=== PATIENT | female | born 1940 | race Caucasian/White ===

== ENCOUNTER → 2017-01-20 | Outpatient (CLI) | payer OTHER, BC ==
[~2017-01-20] MED LIST: IOPAMIDOL (ISOVUE-300) 100 ML BTL ONE
== END ==
LOC: FIMAGING 13:24
PROVIDERS: ATTEND Urology
DX: K46.9 Unspecified abdominal hernia without obstruction or gangrene (principal); K57.30 Diverticulosis of large intestine without perforation or abscess without bleeding; J98.4 Other disorders of lung; M51.36 Other intervertebral disc degeneration, lumbar region; N39.0 Urinary tract infection, site not specified
CPT/HCPCS: 74178; Q9967

== ENCOUNTER 2017-02-04 12:34 | Inpatient (IN) | payer OTHER, BC ==
[2017-02-04] MEDS ORDERED: IPRATROPIUM/ALBUTEROL 3 ML DEYVIAL IH ONE (13:08)
[2017-02-04] MEDS ORDERED: ALBUTEROL 3 ML DEYVIAL IH ONE (13:08)
[2017-02-04] MEDS ORDERED: methylPREDNISolone SOD SUCC 125 MG/2 ML VIAL IVP ONE (13:08)
--- NOTE | 2017-02-04 13:09 | EDPHY ---
H & P Stated Complaint: PT WANTS TO BE ADMITTED FOR MONTHS OF CONTINUING PULMONARY ISSUES Time Seen by Provider: 02/04/17 12:53 HPI/ROS: CHIEF COMPLAINT: Shortness of breath, hypoxemia, needs admission HISTORY OF PRESENT ILLNESS: This is a 76-year-old female with a very complex past medical history was followed at [facility] for Respiratory diagnosis including bronchiectasis, asthma, and hypoxemia. Patient reports very frequent exacerbations and essentially tells me she has not felt well since November. She was seen at the [facility] yesterday and was noted to have worsening data based on the spirometry with a declining FEV1 as well as oxygen titration which demonstrated peripheral oximeter readings of 85% with activity. Patient's understanding is that she was referred to be admitted to [facility] for intensive therapy including IV steroids the potential of IV antibiotics. Patient denies any fevers, chest pain, nausea, vomiting, or diarrhea. Patient does report that her sputum has been becoming yellow and thick. For the patient's primary care physician yesterday, it had been recommended the patient be admitted to the hospital secondary to worsening lung functions, exertional hypoxemia, and failed outpatient attempts to treat her bronchiectasis exacerbation including 2 courses of oral prednisone antibiotic therapy in December. On my history the patient reports that she is feeling very tired, short of breath with any type of exertion. She is supposed to wear oxygen at 2 L continuously but reports that she has not been doing so. She currently does not on any prednisone and she currently does not use any nebulizer treatments. Patient denies a cardiac history. She has had no history of high blood pressure , diabetes, liver kidney issues. She does state that she has "chronic urinary tract infection which has not improved despite 2 courses of Keflex. REVIEW OF SYSTEMS: Aside from elements discussed in the HPI, a comprehensive 10-point review of systems was reviewed and is negative. PAST MEDICAL HISTORY: Bronchiectasis, asthma, GERD, hypothyroidism, hypoxemia, osteopenia, history of basal cell carcinoma, status post knee replacement. Status post hip replacement. SOCIAL HISTORY: Patient is a nonsmoker. Her primary care physician is Dr. Aide Lincoln in the [place] area. She has also closely follow the [facility]. VITAL SIGNS Reviewed by me. GENERAL: Well-developed, well-nourished, no obvious respiratory distress. Very hoarse voice.. HEENT: Atraumatic. Eyes: No icterus, no injection. Mouth: Dry mucous membranes, slight erythema posteriorly. No exudates. No tonsillar enlargement. Neck: supple with no adenopathy. LUNGS: Widespread wheezing and rhonchi. Prolonged expiratory phase. CARDIAC: Regular rate and rhythm, no rubs, murmurs or gallops. ABDOMEN: Soft, mildly obese, nontender, nondistended. BACK: No CVA tenderness. EXTREMITIES: No trauma. No edema. Range of motion is normal throughout. NEURO: Alert and oriented, grossly nonfocal. SKIN: Warm and dry, no rash. PSYCHIATRIC: Normal mentation, no agitation. - Personal History Current Tetanus/Diphtheria Vaccine: Yes - Medical/Surgical History Hx Asthma: Yes Hx Chronic Respiratory Disease: Yes Hx Diabetes: No Hx Cardiac Disease: No Hx Renal Disease: No Hx Cirrhosis: No Hx Alcoholism: No Hx HIV/AIDS: No Hx Splenectomy or Spleen Trauma: No Other PMH: ORTHO/HTN/HYST/GB/BRONCHIECTASIS - Social History Smoking Status: Never smoked Constitutional: Initial Vital Signs Temperature (C) 36.8 C 02/04/17 12:41 Heart Rate 67 02/04/17 12:41 Respiratory Rate 20 02/04/17 12:41 Blood Pressure 127/62 H 02/04/17 12:41 O2 Sat (%) 94 02/04/17 12:41 O2 Delivery Mode Room Air Allergies/Adverse Reactions: No Known Allergies Allergy (Verified 02/04/17 12:38) Home Medications: Medication Instructions Recorded Albuterol [Proventil Inhaler HFA 1 - 2 puffs IH Q4-6PRN PRN 02/04/17 (*)] Aspirin [Aspirin 325 mg (*)] 650 mg PO DAILY 02/04/17 Budesonide/Formoterol 160/4.5 2 puffs IH BID 02/04/17 [Symbicort 160-4.5 Mcg Inh (*)] Cholecalciferol Vit D3 [Vitamin D3 2,000 units PO DAILY 02/04/17 2000 units tab (OTC)] Clotrimazole/Betamet Diprop 1 clover TP BID 02/04/17 [Lotrisone Cream (*)] Levothyroxine [Synthroid 112 mcg 112 mcg PO DAILY06 02/04/17 (*)] Montelukast Sodium [Singulair 10 10 mg PO DAILY@1800 02/04/17 mg (*)] Omeprazole [Prilosec 20 mg] 20 mg PO BIDMEAL 02/04/17 Sodium Chloride For Inhalation 4 ml IH DAILY 02/04/17 [Hyper-Art] Umeclidinium [place] [Incruse 1 puffs IH DAILY 02/04/17 Ellipta] Medical Decision Making - Diagnostics EKG Interpretation: 12-LEAD EKG: Please see the full report in [facility]. My interpretation: With sinus rhythm, no ST or T-wave inversions Imaging Results: Imaging Impressions Chest X-Ray 02/04/17 13:07 Impression: 1. Perihilar bronchitis. 2. Bibasilar linear parenchymal fibrosis, similar to 02/21/2009. Xray: Chest x-ray was obtained. I viewed the images myself on the PACS system. My interpretation of the images is: Bibasilar scarring, no focal infiltrate. The radiology interpretation is: Pending. I discussed the results with the patient. ED Course/Re-evaluation: 76 year female with a complex past medical history presents for ongoing exacerbation of her bronchiectasis and worsening pulmonary function tests as well as hypoxemia. IV was placed and patient received Solu-Medrol 125 mg IV. She was given albuterol via nebulizer as well as a DuoNeb. Re-examination post nebulizer treatments: Minimal improvement in the patient's respiratory exam. Course discussed with hospitalist service. Patient to be admitted for intensive pulmonary support. Differential Diagnosis: Differential diagnosis for the patient's shortness of breath was considered including but not limited to pulmonary infectious processes, bronchiectasis exacerbation, pulmonary emboli, pulmonary edema, congestive heart failure, and cardiac causes. - Data Points Laboratory Results: Laboratory Results 02/04/17 13:06 02/04/17 13:06 02/04/17 02/04/17 13:06 13:06 WBC 9.29 10^3/uL 10^3/uL (3.80-9.50) RBC 4.84 10^6/uL 10^6/uL (4.18-5.33) Hgb 14.5 g/dL g/dL (12.6-16.3) Hct 43.0 % % (38.0-47.0) MCV 88.8 fL fL (81.5-99.8) MCH 30.0 pg pg (27.9-34.1) MCHC 33.7 g/dL g/dL (32.4-36.7) RDW 14.6 % % (11.5-15.2) Plt Count 304 10^3/uL 10^3/uL (150-400) MPV 10.2 fL fL (8.7-11.7) Neut % (Auto) 66.9 % % (39.3-74.2) Lymph % (Auto) 21.3 % % (15.0-45.0) [place] % (Auto) 10.0 % % (4.5-13.0) Eos % (Auto) 1.2 % % (0.6-7.6) Baso % (Auto) 0.4 % % (0.3-1.7) Nucleat RBC Rel Count 0.0 % % (0.0-0.2) Absolute Neuts (auto) 6.21 10^3/uL 10^3/uL (1.70-6.50) Absolute Lymphs (auto) 1.98 10^3/uL 10^3/uL (1.00-3.00) Absolute Monos (auto) 0.93 10^3/uL H 10^3/uL (0.30-0.80) Absolute Eos (auto) 0.11 10^3/uL 10^3/uL (0.03-0.40) Absolute Basos (auto) 0.04 10^3/uL 10^3/uL (0.02-0.10) Absolute Nucleated RBC 0.00 10^3/uL 10^3/uL (0-0.01) Immature Gran % 0.2 % % (0.0-1.1) Immature Gran # 0.02 10^3/uL 10^3/uL (0.00-0.10) Sodium 139 mEq/L mEq/L (134-144) Potassium 4.2 mEq/L mEq/L (3.5-5.2) Chloride 103 mEq/L mEq/L (97-110) Carbon Dioxide 25 mEq/l mEq/l (22-31) Anion Gap 11 mEq/L mEq/L (8-16) BUN 19 mg/dL mg/dL (7-23) Creatinine 0.9 mg/dL mg/dL (0.6-1.0) Estimated GFR > 60 Glucose 99 mg/dL mg/dL (70-100) Calcium 10.2 mg/dL mg/dL (8.5-10.4) Total Bilirubin 1.3 mg/dL mg/dL (0.1-1.4) Conjugated Bilirubin 0.0 mg/dL mg/dL (0.0-0.5) Unconjugated Bilirubin 1.3 mg/dL H mg/dL (0.0-1.1) AST 31 IU/L IU/L (14-46) ALT 23 IU/L IU/L (9-52) Alkaline Phosphatase 89 IU/L IU/L (38-126) Troponin I < 0.012 ng/mL ng/mL (0.000-0.034) Total Protein 7.1 g/dL g/dL (6.3-8.2) Albumin 4.4 g/dL g/dL (3.5-5.0) Lipase 25 IU/L IU/L (23-300) Medications Given: Discontinued Medications Albuterol (Proventil Neb) 3 ml IH EDNOW ONE Stop: 02/04/17 13:09 Last Admin: 02/04/17 13:23 Dose: 3 ml Albuterol/Ipratropium (Duoneb) 3 ml IH EDNOW ONE Stop: 02/04/17 13:09 Last Admin: 02/04/17 13:23 Dose: 3 ml Methylprednisolone Sodium Succinate (Solu-Medrol) 125 mg IVP EDNOW ONE Stop: 02/04/17 13:09 Last Admin: 02/04/17 13:21 Dose: 125 mg Departure - Departure Referrals: Aide Lincoln MD [Primary Care Provider] - As per Instructions
[2017-02-04 13:19] LABS: % IMMATURE GRANULYOCYTES 0.2 % (0.0-1.1); ABSOLUTE IMMATURE GRANULOCYTES 0.02 10^3/uL (0.00-0.10); ADD DIFF? NO; ADD MORPH? NO; ADD SCAN? NO; ATYPICAL LYMPHOCYTE FLAG 10 (0-99); FRAGMENT RBC FLAG 20 (0-99); HEMOGLOBIN 14.5 g/dL (12.6-16.3); LEFT SHIFT FLG 0 (0-99); LIPEMIA HEMOLYSIS FLAG 80 (0-99); MEAN CELL HEMOGLOBIN CONCENTR. 33.7 g/dL (32.4-36.7); MEAN CELL VOLUME 88.8 fL (81.5-99.8); MEAN PLATELET VOLUME 10.2 fL (8.7-11.7); PLATELET CLUMPS FLAG 0 (0-99); PLATELET COUNT 304 10^3/uL (150-400); RED BLOOD CELL COUNT 4.84 10^6/uL (4.18-5.33); RED CELL DISTRIBUTION WIDTH 14.6 % (11.5-15.2)
[2017-02-04 13:26] LABS: ALANINE AMINOTRANSFERASE 23 IU/L (9-52); ALBUMIN 4.4 g/dL (3.5-5.0); ALKALINE PHOSPHATASE 89 IU/L (38-126); ANION GAP 11 mEq/L (8-16); ASPARTATE AMINOTRANSFERASE 31 IU/L (14-46); BILIRUBIN,TOTAL 1.3 mg/dL (0.1-1.4); BILIRUBIN-UNCONJUGATED 1.3 mg/dL (0.0-1.1); CALCIUM 10.2 mg/dL (8.5-10.4); CARBON DIOXIDE 25 mEq/l (22-31); CHLORIDE 103 mEq/L (97-110); CREATININE 0.9 mg/dL (0.6-1.0); GLOMERULAR FILTRATION RATE > 60; GLUCOSE 99 mg/dL (70-100); POTASSIUM 4.2 mEq/L (3.5-5.2); SODIUM 139 mEq/L (134-144); TOTAL PROTEIN 7.1 g/dL (6.3-8.2)
[2017-02-04 13:37] LABS: TROPONIN I < 0.012 ng/mL (0.000-0.034)
--- NOTE | 2017-02-04 13:47 | CPEKG ---
Heart Rate: 59 RR Interval: 1017 P-R Interval: 140 QRSD Interval: 98 QT Interval: 424 QTC Interval: 420 P Percival: 57 QRS Percival: 19 T Wave Percival: 22 EKG Severity - NORMAL ECG - EKG Impression: SINUS RHYTHM Electronically Signed By: Tami Garrido 04-Feb-2017 22:39:16
[2017-02-04] MEDS ORDERED: ALBUTEROL 200 PUFFS/18 GM MDI IH PRN (14:37)
[2017-02-04] MEDS ORDERED: ACETAMINOPHEN 325 MG TAB PO PRN (14:39)
[2017-02-04] MEDS ORDERED: ONDANSETRON 4 MG/2 ML VIAL IVP PRN (14:39)
[2017-02-04] MEDS ORDERED: NS 500 ML IV ONE (14:45)
[2017-02-04] MEDS ORDERED: IOPAMIDOL (ISOVUE 370) 100 ML BTL IV ONE (14:54)
[2017-02-04 15:20] LABS: COLOR YELLOW; LEUKOCYTE ESTERASE,URINE 2+ (NEGATIVE); NITRITE,URINE POSITIVE (NEGATIVE)
[2017-02-04 15:24] LABS: BACTERIA 4+ /hpf (NONE SEEN); MUCUS TRACE /lpf (NONE-1+); WBC,URINE 15-25 /hpf (0-3)
[2017-02-04] MEDS: IPRATROPIUM/ALBUTEROL 3 ML DEYVIAL IH SCH ×2 (17:02→22:27)
[2017-02-04] MEDS: MONTELUKAST SODIUM 10 MG TAB PO SCH (18:45)
[2017-02-04] MEDS: PANTOPRAZOLE SODIUM 40 MG TAB PO SCH (18:45)
--- NOTE | 2017-02-04 19:36 | GHP ---
[f rep st] HISTORY AND PHYSICAL DATE OF ADMISSION: 02/04/2017 CHIEF COMPLAINT: Shortness of breath. HISTORY: The patient is a 76-year-old female with a history of asthma and bronchiectasis, as well as vocal cord dysfunction following at [facility]. She was seen there yesterday, and the y recommended hospitalization. However, she did not want to be admitted at [facility], and she chos e to return to [place], and has presented to the emergency room today. She has really not felt well since last November, and has had 2 rounds of oral prednisone, which have been unsuccessful. She com plains of shortness of breath and a productive white sputum, although the majority of the time her co ugh is dry. She denies any chest pain. When she was seen at [facility] yesterday, she desatura lyle to 85% with activity, and she was noted to have a decreased FEV1. PAST MEDICAL HISTORY: 1. Asthma and COPD. She was hospitalized at [facility] in August for 12 days. 2. Bronchiectasis. 3. Vocal cord dysfunction. 4. Obstructive sleep apnea with a retainer at night. 5. GERD. 6. Small bowel obstruction. PAST SURGICAL HISTORY: 1. C-spine. 2. Rotator cuff. 3. Cholecystectomy. 4. Hysterectomy. 5. Knee arthroplasty. 6. Recent total hip arthroplasty at [facility]. 7. Hernia repair. MEDICATIONS: Please see computer record for full detailed list. ALLERGIES: No known drug allergies. SOCIAL HISTORY: She has never been a smoker. No alcohol. She moved [place] in 1992 from [place] t o be closer to [facility]. She lives with Chi, her significant other of over 40 years . REVIEW OF SYSTEMS: Complete review of systems obtained. Review of systems negative on constitutiona l, HEENT, GI, pulmonary, cardiovascular, , hematology, skin, muscular, endocrine, psych, except for positives and negatives per HPI. FAMILY HISTORY: Mother with stroke. Father with Hodgkin's disease. PHYSICAL EXAMINATION: GENERAL: Well-developed, well-nourished female, in no acute distress. VITAL SIGNS: Temperature is 36.8, pulse 67, blood pressure 127/62, saturating 94% on room air. EYES: Nor mal conjunctivae. Pupils equal, reactive to light. ENT: Normal ears, nose. Hearing intact. Florencia l teeth. Oropharynx moist. NECK: Trachea midline. No thyromegaly. CHEST: Normal respiratory eff ort. Lungs extensive bilateral rhonchi and wheezes throughout. CARDIOVASCULAR: Regular rhythm. No murmur. No extremity edema. ABDOMEN: Soft, nontender. No hepatosplenomegaly. SKIN: Warm, dry, intact without rash. MUSCULOSKELETAL: No cyanosis or clubbing. Strength 5/5 upper and lower extrem ities. NEUROLOGIC: Cranial nerves intact. Normal sensation to light touch. PSYCH: Alert and orie nted x3. Normal affect. Normal judgment and insight. Normal memory. LABORATORY: White count 9.29, hematocrit 43, platelets 304, sodium 139, potassium 4.2, chloride 103, bicarb 25, BUN 19, creatinine 0.9, glucose 99. LFTs are negative. D-dimer is 1. EKG viewed by me. My personal interpretation is normal sinus rhythm. No ST or T-wave changes. Chest x-ray is consis tent with bronchitis. ASSESSMENT/PLAN: 1. Acute asthma exacerbation. She has extensive wheezing throughout. She has taken 2 courses of or al prednisone as an outpatient and has failed. We will now bring her into the hospital and start IV Solu-Medrol and schedule nebulizers. We will check a sputum culture and procalcitonin and consider a ntibiotics, especially with her history of bronchiectasis. 2. Vocal cord dysfunction. I wonder if this may be contributing to her presentation, although I do think I heard some lower wheezing that could be auscultated in the back, but I will ask speech therap y to consult. 3. Bronchiectasis. I suspect she will need some antibiotics. This should be discussed with her [facility] at [facility] in the morning. 4. Obesity with obstructive sleep apnea. She wears a retainer at night, which she can continue. CODE STATUS: Full. ADMISSION STATUS: We will start with observation, although I anticipate she will need more than 1 ni ght in the end. DVT PROPHYLAXIS: She is high risk. We will place her on subcu Lovenox. /[id number]/MODL
[2017-02-04] MEDS ORDERED: BUDESONIDE/FORMOTEROL 160/4.5 60 PUFFS/MDI IH SCH ×2 (21:00)
[2017-02-04] MEDS: CLOTRIMAZOLE/BETAMET DIPROP 15 GM CRTUBE TP SCH (21:07)
[2017-02-04] MEDS: methylPREDNISolone SOD SUCC 40 MG/ML VIAL IVP SCH (21:09)
[2017-02-04] MEDS: BUDESONIDE/FORMOTEROL 160/4.5 60 PUFFS/MDI IH SCH ×2 (21:10→22:27)
[2017-02-05] MEDS: LEVOTHYROXINE 112 MCG TAB PO SCH (04:56)
[2017-02-05] MEDS: methylPREDNISolone SOD SUCC 40 MG/ML VIAL IVP SCH ×3 (05:00→21:47)
[2017-02-05] MEDS ORDERED: [UNRECOGNIZED DRUG - OTHER] IH SCH (09:00)
[2017-02-05] MEDS ORDERED: SODIUM CHLORIDE FOR INHALATION IH SCH (09:00)
[2017-02-05] MEDS ORDERED: UMECLIDINIUM BROMIDE IH SCH (09:00)
[2017-02-05] MEDS: IPRATROPIUM/ALBUTEROL 3 ML DEYVIAL IH SCH ×4 (09:26→21:51)
[2017-02-05] MEDS: SODIUM CHLORIDE FOR INHALATION IH SCH (09:28)
[2017-02-05] MEDS: BUDESONIDE/FORMOTEROL 160/4.5 60 PUFFS/MDI IH SCH ×2 (09:28→21:51)
[2017-02-05] MEDS: [UNRECOGNIZED DRUG - OTHER] IH SCH (09:28)
[2017-02-05] MEDS: CLOTRIMAZOLE/BETAMET DIPROP 15 GM CRTUBE TP SCH ×2 (11:06→21:30)
[2017-02-05] MEDS: ENOXAPARIN 40 MG/0.4 ML SYR SC SCH (11:06)
--- NOTE | 2017-02-05 11:48 | ASMTCASEMG ---
Living Arrangements What is your living Answers: With Partner arrangement? Who do you live with? Type Of Residence What kind of residence do Answers: House you live in? Discharge Plan Comments Coordination Status Comments Notes: Pt is a 76 y/o female admitted for wheezing and shortness of breath. Pt typically ambulates w/ a cane on a day to day basis. Anticipates that pt will most likely d/c independent when medically stable w/ supportive partner. PT/OT/SPL have been ordered and awaiting recommendations. CM to follow for d/c needs. Plan: Independent Date Signed: 02/05/2017 11:47 AM Electronically Signed By:MARSHAL Duncan
[2017-02-05] MEDS: PANTOPRAZOLE SODIUM 40 MG TAB PO SCH ×2 (12:54→17:57)
[2017-02-05] MEDS: ASPIRIN 325 MG TAB PO SCH (12:54)
--- NOTE | 2017-02-05 15:42 | HOSPPROG ---
Hospitalist Progress Note Assessment/Plan: DIAGNOSES: -acute respiratory failure -exacerbation or Asthma, no definite findings to support infection, and so far improving off abx -hx of bronchiectasis, HARRIS (uses dental prosthesis for management but has not had reassessment sleep study with that prosthesis -suspect she has pulm HTN -obesity and recent weight gain of 25 lbs PLANS: -continue bronchodilators, steroid -follow for improvement, consider other therapies if does not improve -at the moment no evidence of pneumonia or respiratory infection and would not start any antibiotic for her acute illness at this time -should be reassessed for effectiveness of her dental prosthesis for HARRIS with repeat sleep study as outpt -should probably have repeat echo at [facility] to eval for pulm HTN and any valvular disease SUBJECTIVE: feels notably better today with decreased cough still however quite dyspneic w attempts at walking OBJECTIVE Vitals reviewed: stable w no fever Exam: alert oriented skin warm dry color ok resps mildly labored lungs quite diminished BSs currently without wheeze heart regular abd soft nondistended nontender, bowel sounds present limbs warm, no edema iv site ok I reviewed CT no infiltrates are noted She has no organisms identified on respiratory pathogen panel Objective: Vital Signs Temp Pulse Resp BP Pulse Ox 37.0 C 77 20 112/63 92 02/05/17 15:32 02/05/17 15:32 02/05/17 15:32 02/05/17 15:32 02/05/17 15:32 Microbiology 02/04/17 14:55 - Final Sputum, Expectorated 02/04/17 15:10 Respiratory Panel (PCR) - Final Nasal, Sinus - Swab No Organism Detected - Time Spent With Patient Time Spent with Patient: greater than 35 minutes Time Spent with Patient: Greater than 35 minutes spent on this patients care, greater than 50% of time spent counseling, educating, and coordinating care regarding the above mentioned plan. ICD10 Worksheet Patient Problems: Problems Problem Status Onset Asthma Acute - ICD10 Problem Qualifiers (1) Asthma
[2017-02-05] MEDS: MONTELUKAST SODIUM 10 MG TAB PO SCH (17:57)
--- NOTE | 2017-02-05 18:44 | PDMN ---
Medical Necessity Medical necessity: Change to IP, as of 02/05/17, per MD; los >2 mn for ongoing management/tx of acute respiratory failure w/dyspnea upon exertion & impaired mobility; hx of bronchiectasis, HARRIS, COPD, asthma & possible pulmonary htn; per progress note& order 02/05/17
[2017-02-05] MEDS: UMECLIDINIUM BROMIDE IH SCH ×2 (20:33→22:14)
[2017-02-05] MEDS: MELATONIN 3 MG TAB PO SCH (21:29)
[2017-02-05] MEDS: SENNOSIDES/DOCUSATE SODIUM TAB PO SCH (21:29)
[2017-02-06] MEDS: LEVOTHYROXINE 112 MCG TAB PO SCH (05:20)
[2017-02-06] MEDS: methylPREDNISolone SOD SUCC 40 MG/ML VIAL IVP SCH ×3 (05:20→21:52)
[2017-02-06] MEDS: IPRATROPIUM/ALBUTEROL 3 ML DEYVIAL IH SCH ×4 (09:25→21:12)
[2017-02-06] MEDS: BUDESONIDE/FORMOTEROL 160/4.5 60 PUFFS/MDI IH SCH ×2 (09:26→17:11)
[2017-02-06] MEDS: SODIUM CHLORIDE FOR INHALATION IH SCH (09:27)
[2017-02-06] MEDS: [UNRECOGNIZED DRUG - OTHER] IH SCH (09:27)
[2017-02-06] MEDS: ENOXAPARIN 40 MG/0.4 ML SYR SC SCH ×2 (10:07→10:10)
[2017-02-06] MEDS: ASPIRIN 325 MG TAB PO SCH ×2 (10:08→10:12)
[2017-02-06] MEDS: CHOLECALCIFEROL VIT D3 2,000 UNITS TAB/CAP PO SCH (10:08)
[2017-02-06] MEDS: PANTOPRAZOLE SODIUM 40 MG TAB PO SCH ×2 (10:08→18:19)
[2017-02-06] MEDS: CLOTRIMAZOLE/BETAMET DIPROP 15 GM CRTUBE TP SCH (10:09)
--- NOTE | 2017-02-06 11:50 | HOSPPROG ---
Hospitalist Progress Note Assessment/Plan: DIAGNOSES: -acute respiratory failure -acute exacerbation of Asthma, no definite findings to support infection, and so far improving off abx -hx of bronchiectasis -asymptomatic pyuria and bacteriuria, which are chronic for her; no indication for any antibiotic treatment; she does follow up with urologist for this -hx of HARRIS (uses dental prosthesis for management but has not had reassessment sleep study with that prosthesis -suspect she has pulm HTN given her obesity and her chronic symptoms though it sounds like this has never been diagnosed -obesity and recent weight gain of 25 lbs -aspirin allergy patient cannot take aspirin, this was accidentally put on her med list and I have removed it PLANS: -continue bronchodilators, steroid -at the moment no evidence of pneumonia or respiratory infection and would not start any antibiotic for her acute illness at this time; if she does have chronic bronchiectasis we could consider using antibiotic if she fails to continue clinical improvement satisfactorily the would not start that now -should be reassessed for effectiveness of her dental prosthesis for HARRIS with a repeat sleep study as outpatient; she will schedule this at [facility] -should probably have repeat echo at [facility] to eval for pulm HTN and any valvular disease; she is working on [facility] with scheduling this The patient had numerous questions and concerns about her respiratory and urologic issues. I spent significant amount of time reviewing all this in great detail answering her questions her satisfaction SUBJECTIVE: Slightly better today but has not attempted walking today yet, slept better Still does not feel at baseline or that she would do well at home at this point due to significant exertional dyspnea OBJECTIVE Vitals reviewed: stable w no fever Exam: alert oriented skin warm dry color ok resps mildly labored lungs quite diminished BSs currently without wheeze heart regular abd soft nondistended nontender, bowel sounds present limbs warm, no edema iv site ok Objective: Vital Signs Temp Pulse Resp BP Pulse Ox 36.9 C 91 16 115/57 L 93 02/06/17 07:59 02/06/17 09:28 02/06/17 09:28 02/06/17 07:59 02/06/17 09:28 - Time Spent With Patient Time Spent with Patient: greater than 35 minutes Time Spent with Patient: Greater than 35 minutes spent on this patients care, greater than 50% of time spent counseling, educating, and coordinating care regarding the above mentioned plan. ICD10 Worksheet Patient Problems: Problems Problem Status Onset Asthma Acute - ICD10 Problem Qualifiers (1) Asthma
[2017-02-06] MEDS: MONTELUKAST SODIUM 10 MG TAB PO SCH (18:19)
[2017-02-06] MEDS: UMECLIDINIUM BROMIDE IH SCH (21:12)
[2017-02-06] MEDS: MELATONIN 3 MG TAB PO SCH (21:53)
[2017-02-06] MEDS: SENNOSIDES/DOCUSATE SODIUM TAB PO SCH (21:53)
[2017-02-07] MEDS: methylPREDNISolone SOD SUCC 40 MG/ML VIAL IVP SCH ×3 (05:18→21:33)
[2017-02-07] MEDS: LEVOTHYROXINE 112 MCG TAB PO SCH (05:18)
[2017-02-07] MEDS ORDERED: TRAMADOL HCL 300 MG PO SCH (09:00)
[2017-02-07] MEDS: IPRATROPIUM/ALBUTEROL 3 ML DEYVIAL IH SCH ×3 (09:09→17:02)
[2017-02-07] MEDS: BUDESONIDE/FORMOTEROL 160/4.5 60 PUFFS/MDI IH SCH ×2 (09:14→17:28)
[2017-02-07] MEDS: PANTOPRAZOLE SODIUM 40 MG TAB PO SCH ×2 (09:41→17:35)
[2017-02-07] MEDS: CHOLECALCIFEROL VIT D3 2,000 UNITS TAB/CAP PO SCH (09:41)
[2017-02-07] MEDS: ENOXAPARIN 40 MG/0.4 ML SYR SC SCH (09:42)
[2017-02-07] MEDS: TRAMADOL HCL 300 MG PO SCH (09:42)
--- NOTE | 2017-02-07 12:10 | SOAPPROG ---
SID Progress Note Assessment/Plan: Assessment: 76 female known to me with reducible ventral hernia/ admitted for resp troubles abd soft with baseball supraumbilical hernia risks and options fully discussed Plan:vh repair when medically stable/ fu as outpt 02/07/17 12:07 Objective: Vital Signs Temp Pulse Resp BP Pulse Ox 36.6 C 83 18 121/63 H 90 L 02/07/17 08:00 02/07/17 09:31 02/07/17 09:31 02/07/17 08:00 02/07/17 09:31 ICD10 Worksheet Patient Problems: Problems Problem Status Onset Asthma Acute
--- NOTE | 2017-02-07 12:15 | ASMTCMCOM ---
CM Note CM Note Notes: Spoke w/pt re; dc poc. Will dc home with homecare, pt has used [facility] in the past. CM faxed referral. DC Plan: Homecare Date Signed: 02/07/2017 12:15 PM Electronically Signed By:Jenny Artis RN
--- NOTE | 2017-02-07 15:31 | HOSPPROG ---
Hospitalist Progress Note Assessment/Plan: DIAGNOSES: -acute respiratory failure -acute exacerbation of Asthma, no definite findings to support infection, and so far improving off abx -hx of bronchiectasis -asymptomatic pyuria and bacteriuria, which are chronic for her; no indication for any antibiotic treatment; she does follow up with urologist for this -hx of HARRIS (uses dental prosthesis for management but has not had reassessment sleep study with that prosthesis -suspect she has pulm HTN given her obesity and her chronic symptoms though it sounds like this has never been diagnosed -obesity and recent weight gain of 25 lbs -aspirin allergy patient cannot take aspirin, this was accidentally put on her med list and I have removed it Today she feels like she has slipped back with increased cough and perhaps slightly increased exertional dyspnea as well as noisy breathing. Overall little change since yesterday She has been declining subcutaneous Lovenox for DVT prophylaxis, which she has also refused during previous hospitalizations here and elsewhere. As I talked about that it seems to be due to her mistaken belief that the needle would actually be placed by the nurse into her stomach cavity and the medicine injected into her stomach cavity as opposed to subcutaneous. We reviewed this in detail and now that she understands this is a simple subcutaneous injections she is accepting of Lovenox and will start that today. PLANS: -continue bronchodilators, steroid, montelukast -chest x-ray now to reassess, considering addition of antibiotic particularly with her history of bronchiectasis -DVT prophylaxis -should be reassessed for effectiveness of her dental prosthesis for HARRIS with a repeat sleep study as outpatient; she will schedule this at [facility] -should probably have repeat echo at [facility] to eval for pulm HTN and any valvular disease; she is working on [facility] with scheduling this The patient had numerous questions and concerns about her respiratory and urologic issues. I spent significant amount of time reviewing all this in great detail answering her questions her satisfaction She had numerous concerns or questions about other medical issues here and we had quite an extensive discussion of her questions and answered to her satisfaction. She had requested that I get Dr. Clifton to come visit her as she does have a hernia that she feels needs to be repaired. I spoke with Dr. Clifton after his visit with her and agree with his assessment that she certainly should be will medical stabilized before she comes to see him for evaluation for the hernia. SUBJECTIVE: Says she did not sleep well last night at all due to noisy breathing and increased cough which was primarily nonproductive No chest pain or fever symptoms Today she felt no better may be perhaps slightly even worse with exertional dyspnea than yesterday OBJECTIVE Vitals reviewed: stable w no fever Exam: alert oriented skin warm dry color ok resps mildly labored lungs quite diminished BSs currently without wheeze heart regular abd soft nondistended nontender, bowel sounds present limbs warm, no edema iv site ok Chest x-ray PA and lateral ordered today, I reviewed the images my interpretation: Objective: Vital Signs Temp Pulse Resp BP Pulse Ox 36.6 C 78 15 121/63 H 94 02/07/17 08:00 02/07/17 13:58 02/07/17 13:58 02/07/17 08:00 02/07/17 13:58 - Time Spent With Patient Time Spent with Patient: greater than 35 minutes Time Spent with Patient: Greater than 35 minutes spent on this patients care, greater than 50% of time spent counseling, educating, and coordinating care regarding the above mentioned plan. ICD10 Worksheet Patient Problems: Problems Problem Status Onset Asthma Acute - ICD10 Problem Qualifiers (1) Asthma
[2017-02-07] MEDS: SODIUM CHLORIDE FOR INHALATION IH SCH (17:00)
[2017-02-07] MEDS: [UNRECOGNIZED DRUG - OTHER] IH SCH (17:00)
[2017-02-07] MEDS: MONTELUKAST SODIUM 10 MG TAB PO SCH (17:35)
[2017-02-07] MEDS: UMECLIDINIUM BROMIDE IH SCH (21:00)
[2017-02-07] MEDS: SENNOSIDES/DOCUSATE SODIUM TAB PO SCH (21:32)
[2017-02-07] MEDS: MELATONIN 3 MG TAB PO SCH (21:32)
[2017-02-08] MEDS: LEVOTHYROXINE 112 MCG TAB PO SCH (05:33)
[2017-02-08] MEDS: methylPREDNISolone SOD SUCC 40 MG/ML VIAL IVP SCH ×3 (05:33→21:01)
[2017-02-08] MEDS ORDERED: GUAIFENESIN/DM 10 ML UDCUP PO PRN (06:17)
[2017-02-08] MEDS: IPRATROPIUM/ALBUTEROL 3 ML DEYVIAL IH SCH ×4 (08:53→21:15)
[2017-02-08] MEDS: BUDESONIDE/FORMOTEROL 160/4.5 60 PUFFS/MDI IH SCH ×2 (08:53→16:50)
[2017-02-08] MEDS: [UNRECOGNIZED DRUG - OTHER] IH SCH (09:22)
[2017-02-08] MEDS: SODIUM CHLORIDE FOR INHALATION IH SCH (09:22)
[2017-02-08] MEDS: CHOLECALCIFEROL VIT D3 2,000 UNITS TAB/CAP PO SCH (10:10)
[2017-02-08] MEDS: BENZONATATE 100 MG CAP PO PRN (10:10)
[2017-02-08] MEDS: PANTOPRAZOLE SODIUM 40 MG TAB PO SCH ×2 (10:11→17:48)
[2017-02-08] MEDS: TRAMADOL HCL 300 MG PO SCH (10:47)
--- NOTE | 2017-02-08 11:54 | SOAPPROG ---
SID Progress Note Assessment/Plan: Assessment: 76 female known to me with reducible ventral hernia/ admitted for resp troubles abd soft with baseball supraumbilical hernia risks and options fully discussed Plan:vh repair when medically stable/ fu as outpt 02/07/17 12:07 02/08/17 11:53 CHEST SITUATION IMPROVING/AFEBRILE/ OLD ABDOMINAL CT REVIEWED AND SHOWS A LARGE AMOUNT OF COLON IN HER VENTRAL HERNIA RISKS AND OPTIONS FULLY DISCUSSED AND I HAVE RECOMMENDED FOR HER TO HAVE A VENTRAL HERNIA REPAIR WHEN SHE IS MEDICALLY CLEARED Objective: Vital Signs Temp Pulse Resp BP Pulse Ox 36.8 C 79 16 140/94 H 95 02/08/17 07:26 02/08/17 08:59 02/08/17 08:59 02/08/17 07:26 02/08/17 08:59 02/07/17 02/08/17 02/09/17 05:59 05:59 05:59 Intake Total 840 Balance 840 ICD10 Worksheet Patient Problems: Problems Problem Status Onset Asthma Acute
--- NOTE | 2017-02-08 16:40 | HOSPPROG ---
Hospitalist Progress Note Assessment/Plan: DIAGNOSES: -acute respiratory failure -acute exacerbation of Asthma -hx of bronchiectasis -asymptomatic pyuria and bacteriuria, which are chronic for her; no indication for any antibiotic treatment; she does follow up with urologist for this -hx of HARRIS (uses dental prosthesis for management but has not had reassessment sleep study with that prosthesis) -suspect she has pulm HTN given her obesity and her chronic symptoms though it sounds like this has never been diagnosed -obesity and recent weight gain of 25 lbs -aspirin allergy patient cannot take aspirin, this was accidentally put on her med list and I have removed it At this point she does not feel like she is making any progress and in fact spent most of the night up with coughing and wheezing last night, no improvement in ability to ambulate, despite not being hypoxemic on room air. Given her bronchiectasis, her worsening wheezing, and her nocturnal cough would at this point give a trial of some antibiotic to see if she improves with that. PLANS: -continue bronchodilators, steroid, montelukast -will give a trial of antibiotic at this time to see if she has any better improvement in breathing and cough -DVT prophylaxis -should be reassessed for effectiveness of her dental prosthesis for HARRIS with a repeat sleep study as outpatient; she will schedule this at [facility] -should probably have repeat echo at [facility] to eval for pulm HTN and any valvular disease; she is working on [facility] with scheduling this SUBJECTIVE: No improvement in ability to ambulate due to dyspnea. Last night she had increased cough with some production No chills or sweats OBJECTIVE Vitals reviewed: stable w no fever Exam: alert oriented skin warm dry color ok resps mildly labored lungs quite diminished BSs but now has extensive wheezing and rhonchi worse than yesterday heart regular abd soft nondistended nontender, bowel sounds present limbs warm, no edema iv site ok Objective: Vital Signs Temp Pulse Resp BP Pulse Ox 37.0 C 87 18 128/88 H 92 02/08/17 15:12 02/08/17 15:12 02/08/17 15:12 02/08/17 15:12 02/08/17 15:12 02/07/17 02/08/17 02/09/17 06:59 06:59 06:59 Intake Total 840 Balance 840 ICD10 Worksheet Patient Problems: Problems Problem Status Onset Asthma Acute - ICD10 Problem Qualifiers (1) Asthma
[2017-02-08] MEDS: ENOXAPARIN 40 MG/0.4 ML SYR SC SCH (17:47)
[2017-02-08] MEDS: MONTELUKAST SODIUM 10 MG TAB PO SCH (17:48)
[2017-02-08] MEDS: MELATONIN 3 MG TAB PO SCH (21:01)
[2017-02-08] MEDS: SENNOSIDES/DOCUSATE SODIUM TAB PO SCH (21:01)
[2017-02-08] MEDS: UMECLIDINIUM BROMIDE IH SCH (21:16)
[2017-02-09] MEDS: methylPREDNISolone SOD SUCC 40 MG/ML VIAL IVP SCH ×2 (05:48→15:30)
[2017-02-09] MEDS: LEVOTHYROXINE 112 MCG TAB PO SCH (05:48)
[2017-02-09] MEDS: IPRATROPIUM/ALBUTEROL 3 ML DEYVIAL IH SCH ×4 (08:51→21:18)
[2017-02-09] MEDS: BUDESONIDE/FORMOTEROL 160/4.5 60 PUFFS/MDI IH SCH ×2 (08:51→17:14)
[2017-02-09] MEDS: [UNRECOGNIZED DRUG - OTHER] IH SCH (09:17)
[2017-02-09] MEDS: SODIUM CHLORIDE FOR INHALATION IH SCH (09:17)
[2017-02-09] MEDS: ENOXAPARIN 40 MG/0.4 ML SYR SC SCH (09:54)
[2017-02-09] MEDS: CHOLECALCIFEROL VIT D3 2,000 UNITS TAB/CAP PO SCH (09:54)
[2017-02-09] MEDS: PANTOPRAZOLE SODIUM 40 MG TAB PO SCH ×2 (09:54→18:04)
[2017-02-09] MEDS: TRAMADOL HCL 100 MG PO SCH (10:32)
[2017-02-09] MEDS: TRAMADOL HCL 300 MG PO SCH (10:34)
--- NOTE | 2017-02-09 14:26 | ASMTCMCOM ---
CM Note CM Note Notes: Spoke with central communications specialist RN at [facility], they will be able to accept patient upon discharge. Per hospitalist, she may go tomorrow. CM will follow. Date Signed: 02/09/2017 02:25 PM Electronically Signed By:Diana Butler RN
[2017-02-09] MEDS: predniSONE 20 MG TAB PO SCH (15:30)
--- NOTE | 2017-02-09 16:20 | SOAPPROG ---
SID Progress Note Assessment/Plan: Assessment: 76 female known to me with reducible ventral hernia/ admitted for resp troubles abd soft with baseball supraumbilical hernia risks and options fully discussed Plan:vh repair when medically stable/ fu as outpt 02/07/17 12:07 02/08/17 11:53 CHEST SITUATION IMPROVING/AFEBRILE/ OLD ABDOMINAL CT REVIEWED AND SHOWS A LARGE AMOUNT OF COLON IN HER VENTRAL HERNIA RISKS AND OPTIONS FULLY DISCUSSED AND I HAVE RECOMMENDED FOR HER TO HAVE A VENTRAL HERNIA REPAIR WHEN SHE IS MEDICALLY CLEARED 02/09/17 16:20 DOING OKAY BUT STILL ON PREDNISONE AND LEVAQUIN FOR RESPIRATORY ISSUES/HERNIA REDUCIBLE/RISKS AND OPTIONS AGAIN DISCUSSED AND SHE WILL NEED HERNIA REPAIR WHEN MEDICALLY CLEAR Objective: Vital Signs Temp Pulse Resp BP Pulse Ox 36.8 C 86 20 120/75 96 02/09/17 14:58 02/09/17 14:58 02/09/17 14:58 02/09/17 14:58 02/09/17 14:58 02/08/17 02/09/17 02/10/17 05:59 05:59 05:59 Intake Total 840 Balance 840 ICD10 Worksheet Patient Problems: Problems Problem Status Onset Asthma Acute
--- NOTE | 2017-02-09 17:40 | HOSPPROG ---
Hospitalist Progress Note Assessment/Plan: Assessment: 76-year-old female presents with acute hypoxic respiratory failure in the setting of acute asthma exacerbation Plan: 1. Acute hypoxic respiratory failure. Evidenced by SpO2 of 88% on room air ventricle is equivalent to a PaO2 of 56, with symptomatic shortness of breath, requiring supplemental oxygen, secondary to asthma exacerbation -continue to monitor respiratory status, currently weaned to room air 2. Acute asthma exacerbation. Evidenced by diffuse expiratory wheezes and bronchial breath sounds, currently clinically on resolved with ongoing obstructed air movement -adjust from IV steroids to prednisone 40 mg daily, continue scheduled duo nebs , continue levofloxacin 750 mg daily to reduce airway inflammation and short duration of symptoms -respiratory viral panel negative, CT angiogram negative for pulmonary embolism -counseled the patient regarding our plan for her treatment of her asthma exacerbation, remains clinically on resolved 3. Atelectasis. Acute, secondary to poor inspiratory ability in the setting of above, continue incentive spirometer 4. Asymptomatic bacteriuria. Patient has long history of bacteriuria and intermittent reported urinary tract infections, currently she has no urinary symptoms, we are not treating this as a urinary tract infection 5. Ventral hernia. Chronic, require surgical repair, reviewed Dr. Clifton note which reports she should have her current clinical process completely resolved prior to engaging in surgery -patient requesting abdominal binder, order 6. Neuropathy. Patient has not received gabapentin in the past, will order trial Diet. Regular Prophylaxis. High risk patient, Lovenox 40 Code. Full Disposition. Anticipated discharge is uncertain this time, requires ongoing treatment for above. Subjective: Patient reports ongoing neuropathy in feet, ongoing shortness of breath with activity, like to take notes Objective: Vital Signs Temp Pulse Resp BP Pulse Ox 36.8 C 84 18 120/75 95 02/09/17 14:58 02/09/17 16:55 02/09/17 16:55 02/09/17 14:58 02/09/17 16:55 02/08/17 02/09/17 02/10/17 05:59 05:59 05:59 Intake Total 840 Balance 840 - Time Spent With Patient Time Spent with Patient: greater than 35 minutes Time Spent with Patient: Greater than 35 minutes spent on this patients care, greater than 50% of time spent counseling, educating, and coordinating care regarding the above mentioned plan. - Physical Exam Constitutional: no apparent distress, not in pain, chronically ill appearing, uncomfortable Cardiovascular: regular rate and rhythym, no murmur, rub, or gallop, edema ( Trace bilateral lower extremities) Respiratory: reduced air movement (On expiration bilaterally), expiratory wheeze , bronchial breath sounds, other (Triggered cough) Gastrointestinal: normoactive bowel sounds, soft, non-tender abdomen, no palpable masses Neurologic: AAOx3 Psychiatric: anxious, other (Pressured speech, rapid, redirectable), No agitated ICD10 Worksheet Patient Problems: Problems Problem Status Onset Asthma Acute
[2017-02-09] MEDS: MONTELUKAST SODIUM 10 MG TAB PO SCH (18:04)
[2017-02-09] MEDS ORDERED: levOFLOXACIN ORAL 25 MG/ML 100 ML BOTTLE PO SCH (20:00)
[2017-02-09] MEDS: MELATONIN 3 MG TAB PO SCH (20:41)
[2017-02-09] MEDS: GABAPENTIN 300 MG CAP PO SCH (20:41)
[2017-02-09] MEDS: SENNOSIDES/DOCUSATE SODIUM TAB PO SCH (20:41)
[2017-02-09] MEDS: UMECLIDINIUM BROMIDE IH SCH (21:21)
[2017-02-10] MEDS: LEVOTHYROXINE 112 MCG TAB PO SCH (05:50)
[2017-02-10] MEDS ORDERED: SODIUM CL FOR INH 10% 15 ML VIAL.NEB IH ONE (09:00)
[2017-02-10] MEDS: IPRATROPIUM/ALBUTEROL 3 ML DEYVIAL IH SCH ×4 (09:16→21:17)
[2017-02-10] MEDS: BUDESONIDE/FORMOTEROL 160/4.5 60 PUFFS/MDI IH SCH ×2 (09:16→17:25)
[2017-02-10] MEDS: [UNRECOGNIZED DRUG - OTHER] IH SCH (09:18)
[2017-02-10] MEDS: SODIUM CHLORIDE FOR INHALATION IH SCH (09:18)
[2017-02-10] MEDS: ENOXAPARIN 40 MG/0.4 ML SYR SC SCH (09:48)
[2017-02-10] MEDS: CHOLECALCIFEROL VIT D3 2,000 UNITS TAB/CAP PO SCH (09:49)
[2017-02-10] MEDS: PANTOPRAZOLE SODIUM 40 MG TAB PO SCH ×2 (09:49→17:51)
[2017-02-10] MEDS: predniSONE 20 MG TAB PO SCH (09:50)
[2017-02-10] MEDS: SODIUM CL FOR INH 10% 15 ML VIAL.NEB IH SCH ×4 (10:13→21:22)
[2017-02-10] MEDS: TRAMADOL HCL 100 MG PO SCH (10:15)
--- NOTE | 2017-02-10 14:41 | ASMTCMCOM ---
CM Note CM Note Notes: CM spoke w/ Jaqueline, the physical therapist and TIFFANIE King regarding d/c POC. CM met w/ pt for dispo planning. Pt would like to have HC through [facility]; PT, RN and SW services. CM to follow. Plan: [facility]; PT, RN and SW Date Signed: 02/10/2017 02:41 PM Electronically Signed By:MARSHAL Duncan
[2017-02-10] MEDS: CEPACOL LOZENGE PO PRN (16:48)
[2017-02-10] MEDS: MONTELUKAST SODIUM 10 MG TAB PO SCH (17:51)
--- NOTE | 2017-02-10 19:20 | HOSPPROG ---
Hospitalist Progress Note Assessment/Plan: Assessment: 76-year-old female presents with acute hypoxic respiratory failure in the setting of acute asthma exacerbation Plan: 1. Acute hypoxic respiratory failure. Evidenced by SpO2 of 88% on room air ventricle is equivalent to a PaO2 of 56, with symptomatic shortness of breath, requiring supplemental oxygen, secondary to asthma exacerbation -continue to monitor respiratory status, currently weaned to room air 2. Acute asthma exacerbation. Evidenced by diffuse expiratory wheezes and bronchial breath sounds, currently clinically on resolved with ongoing obstructed air movement -cont levofloxacin + pred + schedule nebs + anti-tussive + mucolytic + cepacol for sore throat -counseled the patient regarding our plan for her treatment of her asthma exacerbation, remains clinically unresolved 3. Atelectasis. Acute, secondary to poor inspiratory ability in the setting of above, continue incentive spirometer 4. Asymptomatic bacteriuria. Patient has long history of bacteriuria and intermittent reported urinary tract infections, currently she has no urinary symptoms, we are not treating this as a urinary tract infection 5. Ventral hernia. Chronic, require surgical repair, reviewed Dr. Clifton note which reports she should have her current clinical process completely resolved prior to engaging in surgery -patient requesting abdominal binder, ordered 6. Neuropathy. Patient has not received gabapentin in the past, will order trial Diet. Regular Prophylaxis. High risk patient, Lovenox 40 Code. Full Disposition. Anticipated discharge is 02/11 vs. 02/12, requires ongoing treatment for above. Subjective: patient reports she feels short of breath w/ activity, sore throat Objective: Vital Signs Temp Pulse Resp BP Pulse Ox 37.0 C 94 18 117/70 95 02/10/17 19:09 02/10/17 19:09 02/10/17 19:09 02/10/17 19:09 02/10/17 19:09 02/09/17 02/10/17 02/11/17 05:59 05:59 05:59 Intake Total 120 Balance 120 - Time Spent With Patient Time Spent with Patient: greater than 35 minutes Time Spent with Patient: Greater than 35 minutes spent on this patients care, greater than 50% of time spent counseling, educating, and coordinating care regarding the above mentioned plan. - Physical Exam Constitutional: not in pain, chronically ill appearing, uncomfortable Cardiovascular: regular rate and rhythym, no murmur, rub, or gallop, No edema Respiratory: expiratory wheeze, bronchial breath sounds, other (cough triggered w/ deep inspiration), No inspiratory crackles Gastrointestinal: normoactive bowel sounds, soft, non-tender abdomen, no palpable masses Neurologic: AAOx3 Psychiatric: other (rapid speech but directible, coherent) ICD10 Worksheet Patient Problems: Problems Problem Status Onset Asthma Acute
[2017-02-10] MEDS: UMECLIDINIUM BROMIDE IH SCH (21:21)
[2017-02-10] MEDS: guaiFENesin 600 MG TAB.ER PO SCH (21:46)
[2017-02-10] MEDS: SENNOSIDES/DOCUSATE SODIUM TAB PO SCH (21:46)
[2017-02-10] MEDS: GABAPENTIN 300 MG CAP PO SCH (21:46)
[2017-02-10] MEDS: MELATONIN 3 MG TAB PO SCH (21:46)
[2017-02-10] MEDS: BENZONATATE 100 MG CAP PO PRN (22:03)
[2017-02-11] MEDS: SODIUM CL FOR INH 10% 15 ML VIAL.NEB IH SCH ×6 (05:04→21:05)
[2017-02-11] MEDS: LEVOTHYROXINE 112 MCG TAB PO SCH (06:08)
[2017-02-11] MEDS: IPRATROPIUM/ALBUTEROL 3 ML DEYVIAL IH SCH ×4 (09:09→21:03)
[2017-02-11] MEDS: BUDESONIDE/FORMOTEROL 160/4.5 60 PUFFS/MDI IH SCH ×2 (09:11→17:24)
[2017-02-11] MEDS: CHOLECALCIFEROL VIT D3 2,000 UNITS TAB/CAP PO SCH (09:34)
[2017-02-11] MEDS: guaiFENesin 600 MG TAB.ER PO SCH ×2 (09:34→20:29)
[2017-02-11] MEDS: ENOXAPARIN 40 MG/0.4 ML SYR SC SCH (09:34)
[2017-02-11] MEDS: predniSONE 20 MG TAB PO SCH (09:35)
[2017-02-11] MEDS: PANTOPRAZOLE SODIUM 40 MG TAB PO SCH ×2 (09:35→18:27)
[2017-02-11] MEDS: CEPACOL LOZENGE PO PRN (09:38)
[2017-02-11] MEDS: TRAMADOL HCL 100 MG PO SCH (09:57)
--- NOTE | 2017-02-11 10:32 | SOAPPROG ---
SOAP Progress Note Assessment/Plan: Assessment/Plan: 76 Y F c acute hypoxic respiratory failure in setting of asthma exacerbation. Ventral hernia. VH is soft and reducible. Happy to repair it this stay or, more likely at this point, arrange as an outpatient. Could be beneficial to wait as an outpatient once cough is improved and off prednisone. 02/11/17 10:29 Objective: Vital Signs Temp Pulse Resp BP Pulse Ox 36.9 C 70 20 104/65 93 02/11/17 08:00 02/11/17 08:00 02/11/17 08:00 02/11/17 08:00 02/11/17 08:00 02/10/17 02/11/17 02/12/17 05:59 05:59 05:59 Intake Total 120 Balance 120 ICD10 Worksheet Patient Problems: Problems Problem Status Onset Asthma Acute
[2017-02-11] MEDS: BENZONATATE 100 MG CAP PO PRN (13:55)
--- NOTE | 2017-02-11 17:36 | HOSPPROG ---
Hospitalist Progress Note Assessment/Plan: Assessment: 76-year-old female presents with acute hypoxic respiratory failure in the setting of acute asthma exacerbation Plan: 1. Acute hypoxic respiratory failure. Evidenced by SpO2 of 88% on room air ventricle is equivalent to a PaO2 of 56, with symptomatic shortness of breath, requiring supplemental oxygen, secondary to asthma exacerbation -continue to monitor respiratory status, currently weaned to room air 2. Acute asthma exacerbation. Evidenced by diffuse expiratory wheezes and bronchial breath sounds, currently clinically on resolved with ongoing obstructed air movement -cont levofloxacin + pred + schedule nebs + anti-tussive + mucolytic + cepacol for sore throat -counseled the patient regarding our plan for her treatment of her asthma exacerbation, remains clinically unresolved, will plan on total 7 day pred burst w/o taper 3. Atelectasis. Acute, secondary to poor inspiratory ability in the setting of above, continue incentive spirometer 4. Asymptomatic bacteriuria. Patient has long history of bacteriuria and intermittent reported urinary tract infections, currently she has no urinary symptoms, we are not treating this as a urinary tract infection -patient requested UA to eval whether bacturia resolved w/ Abx, her urinary freq is less, will get to help patient put into context her urinary symptoms 5. Ventral hernia. Chronic, require surgical repair, reviewed Dr. Clifton note which reports she should have her current clinical process completely resolved prior to engaging in surgery -patient requested abdominal binder, ordered -recommend outpt surg eval/scheduling 6. Neuropathy. Patient has not received gabapentin in the past, on 300mg HS trial Diet. Regular Prophylaxis. High risk patient, Lovenox 40 Code. Full Disposition. Anticipated discharge is 02/12, requires ongoing treatment for above. Subjective: patient concerned about less frequent urine Objective: Vital Signs Temp Pulse Resp BP Pulse Ox 36.4 C 89 20 118/66 92 02/11/17 15:00 02/11/17 15:00 02/11/17 15:00 02/11/17 15:00 02/11/17 15:00 02/10/17 02/11/17 02/12/17 05:59 05:59 05:59 Intake Total 120 Balance 120 - Time Spent With Patient Time Spent with Patient: greater than 35 minutes Time Spent with Patient: Greater than 35 minutes spent on this patients care, greater than 50% of time spent counseling, educating, and coordinating care regarding the above mentioned plan. - Pending Discharge Pending Discharge Within 24 Hours: Yes Pending Discharge Date: 02/12/17 Pending Discharge Time: 11:00 - Physical Exam Constitutional: not in pain, chronically ill appearing, No uncomfortable Cardiovascular: regular rate and rhythym, no murmur, rub, or gallop Respiratory: bronchial breath sounds, No reduced air movement, No inspiratory crackles, No respiratory distress Gastrointestinal: normoactive bowel sounds, soft, non-tender abdomen, no palpable masses Neurologic: AAOx3, sensation intact bilaterally Psychiatric: not anxious, not encephalopathic, thought process linear, other ( rapid speech but directible) ICD10 Worksheet Patient Problems: Problems Problem Status Onset Asthma Acute
[2017-02-11] MEDS: MONTELUKAST SODIUM 10 MG TAB PO SCH (18:27)
[2017-02-11] MEDS: SENNOSIDES/DOCUSATE SODIUM TAB PO SCH (20:29)
[2017-02-11] MEDS: MELATONIN 3 MG TAB PO SCH (20:29)
[2017-02-11] MEDS: GABAPENTIN 300 MG CAP PO SCH (20:29)
[2017-02-11] MEDS: UMECLIDINIUM BROMIDE IH SCH (21:06)
[2017-02-11 22:28] LABS: COLOR YELLOW; LEUKOCYTE ESTERASE,URINE TRACE (NEGATIVE); NITRITE,URINE NEGATIVE (NEGATIVE)
[2017-02-11 22:39] LABS: MUCUS TRACE /lpf (NONE-1+)
[2017-02-12] MEDS: SODIUM CL FOR INH 10% 15 ML VIAL.NEB IH SCH ×3 (04:36→13:31)
[2017-02-12] MEDS: LEVOTHYROXINE 112 MCG TAB PO SCH (05:03)
[2017-02-12 09:08] VITALS: BP 131/80; RESP 18; TEMP 98.6
[2017-02-12] MEDS: IPRATROPIUM/ALBUTEROL 3 ML DEYVIAL IH SCH ×2 (09:12→13:25)
[2017-02-12 09:23] VITALS: O2SAT 92
[2017-02-12] MEDS: BUDESONIDE/FORMOTEROL 160/4.5 60 PUFFS/MDI IH SCH (09:24)
[2017-02-12] MEDS: PANTOPRAZOLE SODIUM 40 MG TAB PO SCH (09:58)
[2017-02-12] MEDS: CHOLECALCIFEROL VIT D3 2,000 UNITS TAB/CAP PO SCH (09:59)
[2017-02-12] MEDS: guaiFENesin 600 MG TAB.ER PO SCH (09:59)
[2017-02-12] MEDS: predniSONE 20 MG TAB PO SCH (10:07)
[2017-02-12] MEDS: ENOXAPARIN 40 MG/0.4 ML SYR SC SCH (10:07)
[2017-02-12] MEDS: CEPACOL LOZENGE PO PRN (10:15)
[2017-02-12] MEDS: BENZONATATE 100 MG CAP PO PRN (10:15)
[2017-02-12] MEDS ORDERED: MBX SOLN 30 ML BOTTLE PO PRN (10:17)
--- NOTE | 2017-02-12 10:22 | PDIAF ---
- Diagnosis Diagnosis: Asthma Exacerbation Code Status: Full Code - Medication Management Discharge Medications: Medications to Continue on Transfer Albuterol [Proventil Inhaler HFA (*)] 1 - 2 puffs IH Q4-6PRN PRN 02/04/17 [Last Taken Unknown] Budesonide/Formoterol 160/4.5 [Symbicort 160-4.5 Mcg Inh (*)] 2 puffs IH BID [Last Taken Unknown] Cholecalciferol Vit D3 [Vitamin D3 2000 units tab (OTC)] 2,000 units PO DAILY [Last Taken Unknown] Levothyroxine [Synthroid 112 mcg (*)] 112 mcg PO DAILY06 02/04/17 [Last Taken Unknown] Montelukast Sodium [Singulair 10 mg (*)] 10 mg PO DAILY@1800 02/04/17 [Last Taken Unknown] Omeprazole [Prilosec 20 mg] 20 mg PO BIDMEAL 02/04/17 [Last Taken Unknown] Sodium Chloride For Inhalation [Hyper-Art] 4 ml IH BID 02/04/17 [Last Taken Unknown] Umeclidinium [place] [Incruse Ellipta] 1 puffs IH DAILY 02/04/17 [Last Taken Unknown] Albuterol [Proventil Inhaler HFA (*)] 2 puffs IH BID 02/05/17 [Last Taken Unknown] Melatonin [Melatonin 3 MG (*)] 3 mg PO HS 02/05/17 [Last Taken Unknown] Sennosides/Docusate Sodium [Senna-S Tablet] 1 each PO HS 02/05/17 [Last Taken Unknown] celeCOXIB [Celebrex (*)] 200 mg PO DAILY 02/06/17 [Last Taken Unknown] traMADol HCL [Tramadol HCl ER] 300 mg PO DAILY 02/06/17 [Last Taken Unknown] Benzocaine/Menthol 15/4 [Cepacol Lozenge] 1 ea PO PRN PRN #40 lozenge 02/12/17 [ Last Taken Unknown] Benzonatate [Tessalon Pearles] 100 mg PO TID PRN #60 cap 02/12/17 [Last Taken Unknown] Gabapentin [Neurontin 300 MG (*)] 300 mg PO HS #30 cap 02/12/17 [Last Taken Unknown] Mbx Soln;Maalox/Diphen/Lido [Maalox/Diphenhydramine/Lido] 5 ml PO PRN PRN #1 bottle 02/12/17 [Last Taken Unknown] guaiFENesin [Mucinex 600 MG (*)] 1,200 mg PO BID #20 tab.er 02/12/17 [Last Taken Unknown] predniSONE 40 mg PO DAILY #9 tablet 02/12/17 [Last Taken Unknown] Cnc Service Technician Antibiotics: NA Discharge Medications: Refer to the Discharge Home Medication list for PRN reason. PICC Care - Routine: N/A - Orders Services needed: Home Care, Registered Nurse, Master Hybrid Tester, Physical Therapy Home Care Face to Face: I certify that this patient was under my care and that I had the required [id number] encounter meeting the encounter requirements on the discharge day. My findings support the fact that the patient is homebound as defined in Home Care Face to Face Continued: CMS Chapter 7 Medicare Benefits Manual 30.1.1 , The condition of the patient is such that there exists a normal inability to leave home and consequently, leaving home would require a considerable and taxing effort. Isolation Type: None Oxygen: NA Diet Recommendation: no restrictions on diet Diet Texture: Regular Texture Diet Sharp: Not applicable - Follow Up Care Current Providers and Referrals: Salazar Clifton MD [Medical Doctor] - (call for an appt regarding your ventral hernia) Aide Lincoln MD [Primary Care Provider] - 3-5 days
[2017-02-12] MEDS: TRAMADOL HCL 100 MG PO SCH (10:36)
--- NOTE | 2017-02-12 10:57 | PDDCSUM ---
Discharge Summary Discharge Summary: DISCHARGE SUMMARY FOLLOW-UP ITEMS: Follow up at [facility], [place] Triage patient to mental health care as needed DATE OF ADMISSION: 02/04/2017 DATE OF DISCHARGE: 02/12/2007 DISCHARGE DIAGNOSES: 1. Acute hypoxic respiratory failure 2. Acute asthma exacerbation 3. Acute atelectasis 4. Asymptomatic bacteriuria 5. Chronic ventral hernia 6. Chronic neuropathy 7. Mucositis CONSULTATIONS: General surgery by Dr. Clifton PROCEDURES / IMAGING: CT angiograms demonstrating no evidence of pulmonary embolism, no pneumonia CHIEF COMPLAINT: Acute shortness of breath, cough SUBJECTIVE: Patient is feeling well at time discharge, she continues to experience some sore throat and some mucositis PHYSICAL EXAM ON DISCHARGE: Systolic blood pressure 130, heart rate 90, afebrile overnight, satting well on room air, alert awake oriented x3, rapid speech, the patient is neither tangential nor delusional, she is cooperative follows commands, faint expiratory wheezes bilaterally, more prominent upper airway expiratory junky sounds without any inspiratory crackles rhonchi, no lower extremity edema LABS ON DISCHARGE: Creatinine 0.9, procalcitonin 0.06, troponin negative HOSPITAL COURSE BY PROBLEM: 1. Acute hypoxic respiratory failure. Evidenced by SpO2 of 88% on room air which is equivalent to a PaO2 of 56, with symptomatic shortness of breath, requiring supplemental oxygen, secondary to her asthma exacerbation. Patient required supplemental oxygen and then was weaned to room air as her asthma exacerbation improved. She is currently being discharged on room air. 2. Acute asthma exacerbation. Evidenced by diffuse expiratory wheezes and bronchial breath sounds, received IV steroids, scheduled nebs, antitussives, and then did require introduction of antibiotic to short duration of symptoms, additional mucolytic, cepacol lozenge for sore throat. She will be discharged home on 3 subsequent days of prednisone, 40 mg, to complete a total 7 day course , which was extended secondary to ongoing reactive airways. The patient has a rescue inhaler at home, and she does not require more antibiotics then a 5 day burst. She will be continued on scheduled Mucinex, as needed antitussive, cepacol lozenge, and she will continue her other home scheduled inhalers, following up with [facility], [place] in the short term. 3. Acute atelectasis. Secondary to poor inspiratory ability, received incentive spirometer, resolved. 4. Asymptomatic bacteriuria. Patient has a long history of bacteriuria intermittent reported urinary tract infections, she was experiencing urinary frequency but no other symptoms, any urinary frequency did resolve with introduction of Levaquin for condition outlined above. She did request a repeat urinalysis in a did demonstrate that she was no longer nitrite positive, had fewer white blood cells, no leukocyte esterase. She does not require any ongoing antibiotic therapy. She will follow up with her primary urologist. 5. Chronic ventral hernia. Patient was seen by Dr. Clifton during this hospitalization, she did receive an abdominal binder to assist her while she is getting over her asthma exacerbation and continues to cough, and she will follow up in the outpatient setting to schedule surgery. 6. Neuropathy. Patient complains of chronic neuropathy and she was initiated on gabapentin 300 mg at bedtime, to be up titrated by her primary care provider in the outpatient setting. 7. Mucositis. She was given Magic mouthwash, continue as needed. DISCHARGE MEDICATIONS: Please see official discharge medication reconciliation sheet in chart , continue all home medications with the addition of prednisone 40 mg daily x3 days, Tessalon Perles as needed, Mucinex for the next 5 days, Magic mouthwash as needed, lozenges as needed. DISCHARGE INSTRUCTIONS: Please follow up with your primary care provider and you mental health providers as well. She currently has no evidence of mental health decompensation. Please follow up with [facility] as scheduled. TIME SPENT: Greater than 30 minutes were spent on direct patient care, as well as discharge planning and preparation.
[2017-02-12 13:28] VITALS: PULSE 92
--- NOTE | 2017-02-12 16:49 | ASDISCHSUM ---
Discharge Information Plan Status:Home with Home Health Medically Cleared to Leave: Discharge Date:02/12/2017 02:31 PM CM D/C Disposition:Home Health Service ADT D/C Disposition:Home Health Service Projected Discharge Date:02/12/2017 01:00 PM Transportation at D/C:Friend Discharge Delay Reason: Follow-Up Date:02/12/2017 01:00 PM Discharge Slot: Final Diagnosis: Placement Information Referral Type:*Home Health Care Services Referral ID:[id number] Provider Name:[facility] Address 1[address] Phone Number: Address 2: Fax Number: City:[place] Selection Factors: State:[place] Patient Contact Information Contact Name:PERRY Relationship:Life Partner Address: City:[place] Alternate Phone: State/Zip Code:[place] [phone] Email: Financial Information Financial Class: Primary Plan Desc:MEDICARE INPATIENT Primary Plan Number:[id number] Secondary Plan Desc:[facility] Secondary Plan Number:[id number] Assessment Information [facility] Initial CM Assessment Living Arrangements What is your living Answers: With Partner arrangement? Who do you live with? Type Of Residence What kind of residence do Answers: House you live in? Discharge Plan Comments Coordination Status Comments Notes: Pt is a 76 y/o female admitted for wheezing and shortness of breath. Pt typically ambulates w/ a cane on a day to day basis. Anticipates that pt will most likely d/c independent when medically stable w/ supportive partner. PT/OT/SPL have been ordered and awaiting recommendations. CM to follow for d/c needs. Plan: Independent Date Signed: 02/05/2017 11:47 AM Electronically Signed By:MARSHAL Duncan [facility] CM Progress Note CM Note CM Note Notes: Spoke w/pt re; dc poc. Will dc home with homecare, pt has used [facility] in the past. CM faxed referral. DC Plan: Homecare Date Signed: 02/07/2017 12:15 PM Electronically Signed By:Jenny Artis RN [facility] CM Progress Note CM Note CM Note Notes: Spoke with production inspector RN at [facility], they will be able to accept patient upon discharge. Per hospitalist, she may go tomorrow. CM will follow. Date Signed: 02/09/2017 02:25 PM Electronically Signed By:Diana Butler RN [facility] CM Progress Note CM Note CM Note Notes: CM spoke w/ Jaqueline, the physical therapist and TIFFANIE King regarding d/c POC. CM met w/ pt for dispo planning. Pt would like to have HC through [facility]; PT, RN and SW services. CM to follow. Plan: [facility]; PT, RN and SW Date Signed: 02/10/2017 02:41 PM Electronically Signed By:MARSHAL Duncan Case Management Discharge Plan Note Case Management Discharge Discharge Order Complete? Answers: Yes Patient to Obtain Answers: Independently Medications Transportation Arranged Answers: Family/Friends Faxed Final Orders Answers: Yes Discharge Comments Notes: D/w MD, final orders faxed. CM left message for [facility], pt will be picked up by friend. Date Signed: 02/12/2017 10:52 AM Electronically Signed By:Jenny Artis RN Intervention Information Intervention Type:*OLIVER-Signed Date of Service:02/05/2017 09:48 AM Patient Type:Observation Staff Member:Claudette Houser Hours: Discipline: Severity: Comment: Intervention Type:*IM-Signed Date of Service:02/12/2017 11:26 AM Patient Type:Inpatient Staff Member:Claudette Houser Hours: Discipline: Severity: Comment:
== END 2017-02-12 14:31 | disposition home health service (06) | DRG 189 ==
LOC: F3E 15:31 → INTOOBSV 02-05 17:55 → OBSVTOIN 02-05 17:55
PROVIDERS: ADMIT Internal Medicine; ATTEND Internal Medicine
DX: J96.01 Acute respiratory failure with hypoxia (principal); J45.901 Unspecified asthma with (acute) exacerbation; J98.11 Atelectasis; J47.9 Bronchiectasis, uncomplicated; R82.71 Bacteriuria; K43.9 Ventral hernia without obstruction or gangrene; G62.9 Polyneuropathy, unspecified; K12.30 Oral mucositis (ulcerative), unspecified; G47.33 Obstructive sleep apnea (adult) (pediatric); K21.9 Gastro-esophageal reflux disease without esophagitis; E66.9 Obesity, unspecified
CPT/HCPCS: 92507-GN; 92523-GN; 97110-GP; 97116-GP; 97161-GP; 97165-GO; 97530-GP; G0378; G8978-GP-CK; G8979-GP-CI; G8980-GP-CI; G8987-GO-CI; G8988-GO-CI; G8989-GO-CI; G9171-GN-CK; G9172-GN-CJ; G9173-GN-CJ; J1650; J2920; J2930; Q9967